=== PATIENT | male | born 1995 | race Caucasian/White ===

== ENCOUNTER 2022-03-18 09:31 | Emergency (ER) | payer SELFPAY ==
--- NOTE | ~2022-03-18 | US_ITS ---
EXAMINATION: US soft tissue head and neck INDICATION: Cervical lymphadenopathy TECHNIQUE: Targeted high-resolution ultrasound is performed in the neck. COMPARISON: None available FINDINGS: There are multiple enlarged, hypervascular bilateral submandibular lymph nodes. Cortical th ickness measures up to 8 mm. No abscess is identified. IMPRESSION: 1. Enlarged hypervascular bilateral submandibular lymph nodes which may be reactive versus malignant. Reviewed, dictated and finalized at location A. IMPRESSION: 1. Enlarged hypervascular bilateral submandibular lymph nodes which may be reac tive versus malignant.
[2022-03-18 09:52] VITALS: BP 130/78; PULSE 81; RESP 20; TEMP 36.7; O2SAT 99
--- NOTE | 2022-03-18 11:31 | ED.DENTAL ---
HPI - Dental/Oral General Chief complaint: Dental/Oral Stated complaint: gum pain Time Seen by Provider: 03/18/22 11:09 History of Present Illness HPI Narrative: Patient is a 26-year-old male here for evaluation of gingival swelling and irritation for the past several days. He saw his dentist upon symptom onset, who diagnosed him with stomatitis and gave him Magic mouthwash. Patient states that the pain and swelling is persisted. He contacted his dentist who recommended ED evaluation given his presence of systemic symptoms, including weight loss, fatigue, swollen lymph nodes. Family history of leukemia in maternal uncle. No fevers, chills, night sweats. Related Data Allergies Allergy/AdvReac Type Severity Reaction Status Date / Time No Known Allergies Allergy Verified 03/18/22 11:13 Review of Systems Review of Systems: Gen: Denies fevers or chills Eyes: Denies eye pain or visual change ENT: Reports swollen and painful gums. Denies congestion Respiratory: Denies shortness of breath or cough CV: Denies chest pain or palpitations GI: Denies abdominal pain nausea, emesis or diarrhea : denies burning, urgency, frequency or hematuria Musculoskeletal: Denies back pain or muscle pain Neuro: Denies numbness, tingling, weakness or focal weakness Skin: Denies rash Except as documented, all other systems reviewed and negative Exam Narrative: APPEARANCE: Well appearing, no pain in distress, well-nourished. Head: Normocephalic and atraumatic. EYES: PERRLA/EOMI, conjunctivae clear NOSE: No nasal drainage EARS: External ear normal in appearance THROAT: Gingival hyperplasia and swelling, most notably along lower gumline. Patient has numerous aphthous ulcers to gums, soft palate. NECK: Patient has a 1 cm, firm lymph node to left lateral thyroid. RESPIRATORY: Airway patent, respirations nonlabored. Clear to auscultation bilaterally, no rales, rhonchi, wheezing. CARDIOVASCULAR: Regular rate and rhythm without murmurs, rubs, or gallops. ABDOMINAL: Normoactive bowel sounds. Soft, nontender, nondistended. No rebound tenderness or guarding. MUSCULOSKELETAL: Extremities are warm and well-perfused. Moves all extremities well. No edema. NEURO: Normal speech. No focal neurologic deficits. SKIN: Skin is warm and dry. No rashes. PSYCHIATRIC: Normal affect/mood. Course Vital Signs Vital signs: Vital Signs Temperature 98.0 F 03/18/22 09:52 Pulse Rate 81 03/18/22 09:52 Respiratory Rate 20 03/18/22 09:52 Blood Pressure 130/78 03/18/22 09:52 Pulse Oximetry 99 03/18/22 09:52 Oxygen Delivery Room Air 03/18/22 09:52 Temperature 98.0 F 03/18/22 09:52 Pulse Rate 81 03/18/22 09:52 Respiratory Rate 20 03/18/22 09:52 Blood Pressure 130/78 03/18/22 09:52 Pulse Oximetry 99 03/18/22 09:52 Oxygen Delivery Room Air 03/18/22 09:52 MDM - Dental/Oral MDM Narrative Medical decision making narrative: 26-year-old male here for evaluation of what appears to be stomatitis in his mouth, comes to the ED at recommendation for his dentist for blood work to rule out malignancy. Patient does have some systemic symptoms such as weight loss but denies any fevers or chills. He is nontoxic-appearing with normal vital signs. CBC normal, CMP unremarkable. Ultrasound of submandibular lymph nodes in his neck is likely reactive due to swelling in his mouth but cannot exclude malignancy. Have very low suspicion for malignancy today. Given that dentist attributed the stomatitis to herpetic infection, will treat with antiviral. Provided him with primary care follow-up for repeat blood test and also follow-up on the lymph node. Discussed return precautions and he voiced understanding. Lab Data Result diagrams: 03/18/22 11:46 03/18/22 11:46 Labs: Lab Results 03/18/22 03/18/22 Range/Units 11:46 11:46 WBC 7.0 (4.5-10.0) K/mm3 RBC 5.13 (4.6-6.20) M/mm3 Hgb 16.7 (14.0-18.0) g/dL H
[2022-03-18 11:56] LABS: Hematocrit 47.4 % (42.0-52.0); Hemoglobin 16.7 g/dL (14.0-18.0); Mean Corpuscular HGB Conc 35.2 g/dl (32-36); Mean Corpuscular Hemoglobin 32.6 pg (26-34); Mean Corpuscular Volume 92.4 fl (80-100); Mean Platelet Volume 9.6 fl (7.4-10.4); Platelet Count Result 240 k/mm3 (150-375); Red Blood Count 5.13 M/mm3 (4.6-6.20); Red Cell Distribution Width 10.9 % (11.5-14.5)
[2022-03-18 12:06] LABS: Alanine Aminotransferase 26 U/L (6-50); Albumin Level 4.6 g/dL (3.5-5.1); Alkaline Phosphatase 69 U/L (38-126); Anion Gap 11 mmol/L (8-16); Aspartate Amino Transferase 31 U/L (17-59); Bilirubin,Total 1.3 mg/dL (0.2-1.3); Blood Urea Nitrogen 14 mg/dL (9-20); Calcium 8.8 mg/dL (8.4-10.2); Carbon Dioxide 27 mmol/L (22-30); Chloride 97 mmol/L (98-107); Estimated CRCL calculation 78 ml/min; Estimated Glomerular Filt Rate > 60; Glucose 85 mg/dL (65-110); Potassium 3.9 mmol/L (3.4-5.0); Sodium 135 mmol/L (137-145)
[2022-03-18] MEDS: IBUPROFEN 400 MG TABLET 800 MG PO (12:40)
[2022-03-18 13:05] LABS: Atypical Lymphocytes Present; Band Neutrophils Percent 3 % (0-6); Monocytes Absolute Manual 0.84 K/mm3 (0.1-0.90); Monocytes Percent Manual 12 % (3-9); Neutrophils Absolute Manual 4.76 K/mm3 (1.3-6.7); Neutrophils Percent Manual 65 % (46-73); Platelet Estimate Adequate (Adequate); Total Cells Counted 100
== END 2022-03-18 13:43 | disposition home or self-care (01) ==
PROVIDERS: Physician Assistant; Emergency Provider Emergency Medicine
DX: K12.1 Other forms of stomatitis (principal)
CPT/HCPCS: 36415; 76536; 80053; 85025; 99284; A9270